=== PATIENT | female | born 1975 | race Caucasian/White ===

== ENCOUNTER 2018-01-31 04:55 | Emergency (ER) | payer OTHER, MEDICAID ==
[~2018-01-31] VITALS: Ht 165.1 cm; Wt 81.2 kg
[2018-01-31 05:00] VITALS: BP 130/93
[2018-01-31 08:47] LABS: URINE HCG NEGATIVE (NEG)
== END 2018-01-31 10:37 | disposition home or self-care (01) ==
LOC: ER 04:56 → EEVIPCON 04:56 → ER 10:37
DX: S40.022A Contusion of left upper arm, initial encounter (principal); S40.021A Contusion of right upper arm, initial encounter; S10.93XA Contusion of unspecified part of neck, initial encounter; F12.90 Cannabis use, unspecified, uncomplicated; F15.90 Other stimulant use, unspecified, uncomplicated; H53.8 Other visual disturbances; M54.5 Low back pain; F17.200 Nicotine dependence, unspecified, uncomplicated; G89.29 Other chronic pain; Z88.0 Allergy status to penicillin; Z88.1 Allergy status to other antibiotic agents; Z88.8 Allergy status to other drugs, medicaments and biological substances; T74.21XA Adult sexual abuse, confirmed, initial encounter; Y93.89 Activity, other specified; Y92.89 Other specified places as the place of occurrence of the external cause; Y99.8 Other external cause status
CPT/HCPCS: 81025; 99284

== ENCOUNTER 2022-12-24 00:01 | Emergency (ER) | payer MEDICAID, OTHER ==
[~2022-12-24] VITALS: Ht 165.1 cm; Wt 80.0 kg
[2022-12-24] MEDS ORDERED: LIDOcaine 1% w/EPI 1:200,000 injection 10mL vial ONE (02:37)
[2022-12-24] MEDS ORDERED: LIDOcaine 1% W/epiNEPHrine 1:100,000 20ml vial IJ ONE (02:40)
[2022-12-24] MEDS ORDERED: SULF1TAB49 PO (03:09)
[2022-12-24 03:14] VITALS: BP 149/94
== END 2022-12-24 03:27 | disposition home or self-care (01) ==
LOC: ER 00:02
DX: L72.3 Sebaceous cyst (principal); I10 Essential (primary) hypertension; F17.200 Nicotine dependence, unspecified, uncomplicated; F15.20 Other stimulant dependence, uncomplicated; F12.90 Cannabis use, unspecified, uncomplicated; Z88.0 Allergy status to penicillin; Z88.1 Allergy status to other antibiotic agents; Z91.041 Radiographic dye allergy status
CPT/HCPCS: 10160; 99284; J3490; A6449

== ENCOUNTER 2023-11-07 15:41 | Emergency (ER) | payer MEDICAID ==
[~2023-11-07] VITALS: Ht 165.1 cm; Wt 103.6 kg
[2023-11-07 16:44] VITALS: BP 178/102; PULSE 95; RESP 18; TEMP 98.2; O2SAT 100
[2023-11-07] MEDS ORDERED: PENICILLIN G BENZATHINE 2,400,000 UNIT/4 ML SYRINGE IM STA (19:00)
[2023-11-07] MEDS ORDERED: azithromycin 250mg tablet PO ONE (19:15)
[2023-11-07] MEDS: azithromycin 250mg tablet PO ONE (19:27)
[2023-11-07] MEDS: dexamethasone sod phosphate 10mg/ml inj IM STA (19:28)
[2023-11-07] MEDS: diphenhydrAMINE 50 mg/ml inj IV ONE (19:31)
== END 2023-11-07 19:33 | disposition home or self-care (01) ==
LOC: ER 15:42
DX: A53.9 Syphilis, unspecified (principal); F12.10 Cannabis abuse, uncomplicated; F15.10 Other stimulant abuse, uncomplicated; I10 Essential (primary) hypertension; G89.29 Other chronic pain; G54.9 Nerve root and plexus disorder, unspecified; Z88.0 Allergy status to penicillin; Z88.1 Allergy status to other antibiotic agents; Z88.8 Allergy status to other drugs, medicaments and biological substances
CPT/HCPCS: 96372; 99283; J1100

== ENCOUNTER 2024-07-11 14:03 | Outpatient (CLI) | payer MEDICAID ==
[2024-07-11 15:57] LABS: PROTHROMBIN TIME 10.2 SECONDS (9.0-12.0)
[2024-07-11 15:59] LABS: HCG SERUM QL NEGATIVE
== END 2024-07-11 23:59 | disposition home or self-care (01) ==
LOC: RAD 14:03
PROVIDERS: ATTEND Family Medicine
DX: B18.2 Chronic viral hepatitis C (principal)
CPT/HCPCS: 36415; 82103; 84703; 85610

== ENCOUNTER 2024-08-26 09:38 | Outpatient (CLI) | payer MEDICAID ==
[2024-08-26] MEDS ORDERED: iohexol 350MG/ML 100ml bottle IV ONE (09:51)
== END 2024-08-26 23:59 | disposition home or self-care (01) ==
LOC: RAD 09:38
PROVIDERS: ATTEND Student in an Organized Health Care Education/Training Program
DX: T71.193A Asphyxiation due to mechanical threat to breathing due to other causes, assault, initial encounter (principal); X58.XXXA Exposure to other specified factors, initial encounter; Y93.89 Activity, other specified; Y92.89 Other specified places as the place of occurrence of the external cause; Y99.8 Other external cause status
CPT/HCPCS: 70498; Q9967